=== PATIENT | male | born 1985 | race Asian ===

== ENCOUNTER 2016-09-05 06:09 | Emergency (ER) | payer MEDICAID ==
[~2016-09-05] VITALS: Ht 177.8 cm; Wt 61.9 kg
[2016-09-05 06:47] VITALS: BP 146/98
== END 2016-09-05 07:50 | disposition left against medical advice (07) ==
LOC: ER 07:48
DX: K08.89 Other specified disorders of teeth and supporting structures (principal); Z53.21 Procedure and treatment not carried out due to patient leaving prior to being seen by health care provider

== ENCOUNTER 2022-01-17 13:43 | Emergency (ER) | payer MEDICAID ==
[~2022-01-17] VITALS: Ht 182.9 cm; Wt 82.0 kg
[2022-01-17 14:08] VITALS: BP 167/113
== END 2022-01-17 17:34 | disposition left against medical advice (07) ==
LOC: ER 13:55
DX: Z53.21 Procedure and treatment not carried out due to patient leaving prior to being seen by health care provider (principal)